=== PATIENT | male | born 1960 | race Caucasian/White ===

== ENCOUNTER → 2016-12-18 | Outpatient (CLI) | payer OTHER ==
[~2016-12-18] MED LIST: ASPIRIN325 M1 PO; FUROSEMIDE40 MG PO; K-DUR20 ME1 PO; LASIX PO; LISINOPRIL10 MG PO; METFORMIN HCL500 M1 PO; MIRAPEX PO; NO MEDICATIONS; PRAVASTATIN SOD40 MG PO; PREDNISONE PO; PROAIR HFA8.5 GM IH; SPIRIVA18 MCG INH; SYMBICORT INH; Z-PACK
== END | disposition home or self-care (01) ==
LOC: CRC 09:35
DX: J44.9 Chronic obstructive pulmonary disease, unspecified (principal)
CPT/HCPCS: 94060; 94726; 94729